=== PATIENT | female | born 1985 | race Caucasian/White ===

== ENCOUNTER 2023-03-07 18:35 | Outpatient (RCR) | payer OTHER, SELFPAY | END 2023-03-07 23:59 | disposition home or self-care (01) | LOC: RPT 18:35 | PROVIDERS: ATTENDING PHYSICIAN Student in an Organized Health Care Education/Training Program; FAMILY PHYSICIAN Family Medicine | DX: Z47.89 Encounter for other orthopedic aftercare (principal); M25.512 Pain in left shoulder | CPT/HCPCS: 97010; 97110; 97112; 97140 ==

== ENCOUNTER 2023-04-08 08:03 | Outpatient (RCR) | payer OTHER, SELFPAY | END 2023-04-11 07:28 | disposition home or self-care (01) | LOC: RPT 08:03 | PROVIDERS: ATTENDING PHYSICIAN Student in an Organized Health Care Education/Training Program; FAMILY PHYSICIAN Family Medicine | DX: Z47.89 Encounter for other orthopedic aftercare (principal); M75.42 Impingement syndrome of left shoulder; M25.512 Pain in left shoulder; Z73.6 Limitation of activities due to disability | CPT/HCPCS: 97010; 97110; 97112; 97140 ==

== ENCOUNTER → 2023-05-19 06:47 | Outpatient (REF) | payer OTHER, SELFPAY | LOC: PNTC 06:47 | PROVIDERS: ATTENDING PHYSICIAN Obstetrics & Gynecology | DX: O09.529 Supervision of elderly multigravida, unspecified trimester (principal); Z36.0 Encounter for antenatal screening for chromosomal anomalies; Z36.82 Encounter for antenatal screening for nuchal translucency | CPT/HCPCS: 76801; 76813 ==

== ENCOUNTER → 2023-08-26 14:59 | Outpatient (REF) | payer OTHER, SELFPAY | LOC: REG 14:59 | PROVIDERS: ATTENDING PHYSICIAN Obstetrics & Gynecology; FAMILY PHYSICIAN Family Medicine | DX: O36.0121 Maternal care for anti-D [Rh] antibodies, second trimester, fetus 1 (principal) | CPT/HCPCS: 86850; 86900; 86901; J2790 ==

== ENCOUNTER 2023-10-10 10:30 | Outpatient (RCR) | payer OTHER, SELFPAY | END 2023-10-10 23:59 | disposition home or self-care (01) | LOC: RPT 10:30 | PROVIDERS: ATTENDING PHYSICIAN Obstetrics & Gynecology; FAMILY PHYSICIAN Family Medicine | DX: M62.89 Other specified disorders of muscle (principal); Z73.6 Limitation of activities due to disability; R27.8 Other lack of coordination | CPT/HCPCS: 97162; 97530 ==

== ENCOUNTER 2023-11-18 08:10 | Inpatient (IN) | payer OTHER, SELFPAY ==
[2023-11-18 08:20] VITALS: BMI 27.8
[2023-11-18 08:21] VITALS: BP 121/73
[2023-11-18 14:41] LABS: % Basophils 0.3 % (0-2); % Eosinophils 0.4 % (0-6); % Immature Granulocytes 0.3 % (0-0.5); % Monocytes 5.9 % (1.7-9.3); % Neutrophils 78.1 % (42.2-75.2); Absolute Lymphocytes 1.7 10^3/uL (1.2-3.4); Absolute Monocytes 0.7 10^3/uL (0.1-0.6); Absolute Neutrophils 8.7 10^3/uL (1.4-6.5); Hematocrit 34.6 % (37.0-47.0); Hemoglobin 12.1 g/dL (12.0-16.0); Mean Corpuscular Hgb 30.6 pg (27.0-31.0); Mean Corpuscular Volume 87.4 fL (81.0-99.0); Nucleated Red Blood Cells % 0 %; Red Blood Cell Count 3.96 10^6/uL (4.20-5.40); Red Cell Dist. Width 12.8 % (11.5-14.5); White Blood Cell Count 11.2 10^3/uL (4.8-10.8)
[2023-11-18 15:08] LABS: Platelet Count 164 10^3/uL (130-400)
[2023-11-18] MEDS: SUBLIMAZE 100 MCG EPIDURAL (16:39)
[2023-11-18] MEDS: FENTANYL/BUPIVACAINE 100 EPIDURAL (16:39)
[2023-11-18] MEDS: LR 1000 IV (17:04)
[2023-11-19] MEDS: PITOCIN 30 UNITS/NSS 500 ML IV (00:20)
[2023-11-19] MEDS: TYLENOL 650 MG PO ×2 (01:36→05:42)
[2023-11-19] MEDS: MOTRIN 600 MG PO ×4 (02:20→20:24)
[2023-11-19] MEDS: LEXAPRO 5 MG PO (08:18)
[2023-11-19] MEDS: PRENATAL PLUS 1 TABLET PO (08:18)
[2023-11-19] MEDS: SENOKOT-S 1 TABLET PO (14:18)
[2023-11-20 04:39] LABS: Hemoglobin 10.2 g/dL (12.0-16.0)
[2023-11-20] MEDS: PRENATAL PLUS 1 TABLET PO (08:15)
[2023-11-20] MEDS: LEXAPRO 5 MG PO (08:15)
[2023-11-20] MEDS: FEOSOL 325 MG PO (08:15)
[2023-11-20] MEDS: SENOKOT-S 1 TABLET PO (08:20)
[2023-11-20] MEDS: RHOGAM 300 MCG IM (08:51)
[2023-11-20] MEDS: AFLURIA (36 mos+) 2024-2025 FORMULA 0.5 ML IM (09:30)
[2023-11-22 11:18] LABS: Syphilis/T. pallidum Ab Reflex Negative (Negative)
== END 2023-11-20 11:56 | disposition home or self-care (01) | DRG 807 ==
LOC: LDRP 08:10
PROVIDERS: Obstetrics & Gynecology; ADMITTING PHYSICIAN Student in an Organized Health Care Education/Training Program; ATTENDING PHYSICIAN Obstetrics & Gynecology; FAMILY PHYSICIAN Family Medicine
PROC: 0UQMXZZ Repair Vulva, External Approach (ICD-10-PCS; 2023-11-19)
PROC: 0KQM0ZZ Repair Perineum Muscle, Open Approach (ICD-10-PCS; 2023-11-19)
PROC: 10E0XZZ Delivery of Products of Conception, External Approach (ICD-10-PCS; 2023-11-19)
PROC: 10907ZC Drainage of Amniotic Fluid, Therapeutic from Products of Conception, Via Natural or Artificial Opening (ICD-10-PCS; 2023-11-19)
PROC: 3E02340 Introduction of Influenza Vaccine into Muscle, Percutaneous Approach (ICD-10-PCS; 2023-11-20)
DX: O34.219 Maternal care for unspecified type scar from previous cesarean delivery (principal); Z37.0 Single live birth; Z3A.39 39 weeks gestation of pregnancy; O70.1 Second degree perineal laceration during delivery; O71.82 Other specified trauma to perineum and vulva; Z23 Encounter for immunization
CPT/HCPCS: 36415; 85014; 85018; 85025; 85461; 86780; 86850; 86870; 86900; 86901; 90686; G0008; J2790

== ENCOUNTER 2024-02-13 12:00 | Outpatient (RCR) | payer OTHER, SELFPAY | END 2024-02-13 23:59 | disposition home or self-care (01) | LOC: RPT 12:00 | PROVIDERS: ATTENDING PHYSICIAN Obstetrics & Gynecology; FAMILY PHYSICIAN Family Medicine | DX: M62.89 Other specified disorders of muscle (principal); R15.2 Fecal urgency; R15.9 Full incontinence of feces; Z73.6 Limitation of activities due to disability; M62.81 Muscle weakness (generalized); R27.8 Other lack of coordination | CPT/HCPCS: 97014; 97112; 97140; 97162; 97530 ==

== ENCOUNTER 2024-03-09 09:02 | Outpatient (RCR) | payer OTHER, SELFPAY | END 2024-03-09 23:59 | disposition home or self-care (01) | LOC: RPT 09:02 | PROVIDERS: ATTENDING PHYSICIAN Obstetrics & Gynecology; FAMILY PHYSICIAN Family Medicine | DX: M62.89 Other specified disorders of muscle (principal); R15.2 Fecal urgency; R15.9 Full incontinence of feces; Z73.6 Limitation of activities due to disability; M62.81 Muscle weakness (generalized); R27.8 Other lack of coordination | CPT/HCPCS: 97014; 97112; 97530 ==

== ENCOUNTER 2024-03-21 11:15 | Outpatient (RCR) | payer OTHER, SELFPAY | END 2024-03-27 23:59 | disposition home or self-care (01) | LOC: RPT 11:15 | PROVIDERS: ATTENDING PHYSICIAN Obstetrics & Gynecology; FAMILY PHYSICIAN Family Medicine | DX: M62.89 Other specified disorders of muscle (principal); R15.2 Fecal urgency; R15.9 Full incontinence of feces; Z73.6 Limitation of activities due to disability; M62.81 Muscle weakness (generalized); R27.8 Other lack of coordination | CPT/HCPCS: 97014; 97110; 97112; 97140; 97530 ==

== ENCOUNTER 2024-07-10 09:00 | Outpatient (RCR) | payer OTHER, SELFPAY | END 2024-07-10 23:59 | disposition home or self-care (01) | LOC: RPT 09:00 | PROVIDERS: ATTENDING PHYSICIAN Obstetrics & Gynecology; FAMILY PHYSICIAN Family Medicine | DX: M62.89 Other specified disorders of muscle (principal); R15.2 Fecal urgency; R15.9 Full incontinence of feces; Z73.6 Limitation of activities due to disability; M62.81 Muscle weakness (generalized); R27.8 Other lack of coordination | CPT/HCPCS: 97110; 97112; 97140 ==

== ENCOUNTER 2024-08-09 09:19 | Outpatient (RCR) | payer OTHER, SELFPAY | END 2024-08-09 23:59 | disposition home or self-care (01) | LOC: RPT 09:19 | PROVIDERS: ATTENDING PHYSICIAN Obstetrics & Gynecology; FAMILY PHYSICIAN Family Medicine | DX: M62.89 Other specified disorders of muscle (principal); R15.2 Fecal urgency; R15.9 Full incontinence of feces; Z73.6 Limitation of activities due to disability; M62.81 Muscle weakness (generalized); R27.8 Other lack of coordination | CPT/HCPCS: 97110; 97112; 97140 ==

== ENCOUNTER 2024-09-04 07:19 | Outpatient (RCR) | payer OTHER, SELFPAY | END 2024-09-04 23:59 | disposition home or self-care (01) | LOC: RPT 07:19 | PROVIDERS: ATTENDING PHYSICIAN Obstetrics & Gynecology; FAMILY PHYSICIAN Family Medicine | DX: M62.89 Other specified disorders of muscle (principal); R15.2 Fecal urgency; R15.9 Full incontinence of feces; Z73.6 Limitation of activities due to disability; M62.81 Muscle weakness (generalized); R27.8 Other lack of coordination; M54.51 Vertebrogenic low back pain | CPT/HCPCS: 97110; 97112; 97140 ==

== ENCOUNTER 2024-09-21 06:57 | Outpatient (RCR) | payer OTHER, SELFPAY | END 2024-10-03 07:35 | disposition home or self-care (01) | LOC: RPT 06:57 | PROVIDERS: ATTENDING PHYSICIAN Obstetrics & Gynecology; FAMILY PHYSICIAN Family Medicine | DX: M62.89 Other specified disorders of muscle (principal); R15.2 Fecal urgency; R15.9 Full incontinence of feces; Z73.6 Limitation of activities due to disability; M62.81 Muscle weakness (generalized); R27.8 Other lack of coordination; M54.51 Vertebrogenic low back pain | CPT/HCPCS: 97110; 97112; 97140 ==